=== PATIENT | male | born 1990 | race Caucasian/White ===

== ENCOUNTER → 2016-12-24 21:09 | Emergency (ER) | payer SELFPAY | END | disposition home or self-care (01) | LOC: OH 21:09 | DX: Z02.5 Encounter for examination for participation in sport (principal) ==

== ENCOUNTER 2017-09-02 08:09 | Emergency (ER) | payer BC ==
[2017-09-02 08:25] VITALS: BP 117/63
--- NOTE | 2017-09-02 09:26 | RAD ---
INDICATION: Left wrist injury. TECHNIQUE: 3 views of the left wrist were obtained. FINDINGS: The bones are in normal alignment. No fracture is seen. Joint spaces appear maintained. IMPRESSION: NO EVIDENCE FOR FRACTURE, IF THE PATIENT'S SYMPTOMS PERSIST RECOMMEND FOLLOW-UP IMAGING.
--- NOTE | 2017-09-15 13:11 | UC ---
[facility], scribed for Ruth Flores DO on 09/02/17 at 0846 . Hand/Wrist HPI - HPI Summary HPI Summary: This patient is a 26 year old male presenting to [facility] – [place] with a chief complaint of left hand injury since last night. Patient states he suffered a mechanical fall yesterday while playing soccer and caught his fall with his left hand. Patient complains of upper hand/wrist pain. There was no noticeable swelling. The pain is rated 0/10 in severity at rest. Symptoms and pain aggravated by movement and palpation. Symptoms alleviated by nothing. Patient denies bruising or swelling, elbow or forearm pain. - History Of Current Complaint Chief Complaint: UCUpperExtremity Stated Complaint: HAND INJURY Time Seen by Provider: 09/02/17 08:28 Hx Obtained From: Patient Onset/Duration: Sudden Onset, Lasting Days - 1, Still Present Severity Currently: Mild Pain Intensity: 0 Pain Scale Used: 0-10 Numeric Aggravating Factor(s): Movement Alleviating Factor(s): Nothing Associated Signs And Symptoms: Positive: Negative - bruising or swelling, elbow or forearm pain - Allergies/Home Medications Allergies/Adverse Reactions: Allergies Allergy/AdvReac Type Severity Reaction Status Date / Time No Known Allergies Allergy Verified 09/02/17 08:25 Home Medications: Home Medications NK [No Home Medications Reported] 09/02/17 [History Confirmed 09/02/17] PMH/Surg Hx/FS Hx/Imm Hx Previously Healthy: Yes Endocrine History: Other Other Endocrine History: NEGATIVE: diabetes Cardiovascular History: Other - NEGATIVE: Hypertension Other Cardiovascular History: NEGATIVE: Hypertension - Surgical History Surgical History: None Surgery Procedure, Year, and Place: none - Family History Known Family History: Negative: Hypertension, Diabetes - Social History Lives: Alone Alcohol Use: Rare Substance Use Type: None Smoking Status (MU): Never Smoked Tobacco - Immunization History Most Recent Influenza Vaccination: declined Review of Systems All Other Systems Reviewed And Are Negative: Yes Physical Exam Triage Information Reviewed: Yes Vital Signs: Initial Vital Signs Temp 100.3 F 09/02/17 08:21 Pulse 64 09/02/17 08:21 Resp 20 09/02/17 08:21 BP 117/63 09/02/17 08:21 Pulse Ox 98 09/02/17 08:21 Vital Signs Reviewed: Yes - Additional Comments Appearance: Well-Appearing, No Pain Distress, Well-Nourished Eyes: conjunctiva clear, no discharge ENT: Hearing grossly normal, no muffled/hoarse voice. Neck: Normal, Supple Respiratory/Lung Sounds: Lungs clear, Normal breath sounds, No respiratory distress, No accessory muscle use Cardiovascular: RRR, No murmur Abdomen: Nontender, Soft, no guarding, not distended Musculoskeletal: Tenderness in base of 2nd through 4th medicarpal Neurological: Alert, muscle tone normal Psychiatric:Normal, age appropriate behavior Skin: Normal, Warm, Dry, Normal color Diagnostics - Radiology XR Wrist Xray Interpretation: No Acute Changes - IMPRESSION: NO EVIDENCE FOR FRACTURE, IF THE PATIENT'S SYMPTOMS PERSIST RECOMMEND FOLLOW-UP IMAGING. physician has reviewed this radiology report. Radiology Interpretation Completed By: Radiologist Hand/Wrist Course/Dx - Course Course Of Treatment: This patient is a 26 year old male presenting to [facility] – [place], [place] with a chief complaint of left hand injury since last night. Patient states he suffered a mechanical fall yesterday while playing soccer and caught his fall with his left hand. Patient complains of upper hand/wrist pain. There was no noticeable swelling. The pain is rated 0/10 in severity at rest. Symptoms and pain aggravated by movement and palpation. Symptoms alleviated by nothing. Patient denies bruising or swelling, elbow or forearm pain. XR Wrist reveals, per radiologist, IMPRESSION: NO EVIDENCE FOR FRACTURE, IF THE PATIENT'S SYMPTOMS PERSIST RECOMMEND FOLLOW-UP IMAGING. physician has reviewed this radiology report. Patient will be discharged with a diagnosis of wrist sprain and suspected fracture and follow up from PCP. The patient is agreeable with this plan. Medications reviewed. Allergies reviewed. - Differential Dx/Diagnosis Provider Diagnoses: Wrist Sprain and Suspected Fracture Discharge - Discharge Plan Condition: Good Disposition: HOME Patient Education Materials: Splint Care (ED), Suspected Fracture (ED), Wrist Sprain (ED) Referrals: Deloris Magaña MD [Medical Doctor] - 7 Days No Primary Care Phys,NOPCP [Primary Care Provider] - Additional Instructions: Your history and exam is suspicous for possible occult fracture of the scaphoid bone. This is a fracture that can have a bad outcome if not properly immobilized. So, we will treat this as a fracture until proven otherwise. That means that you must wear the splint 24 hours a day until the ortho provider tells you otherwise. It will take 5-7 days to establish whether or not your bone is fractured. The documentation as recorded by the [facility] accurately reflects the service I personally performed and the decisions made by , Ruth Flores DO.
== END 2017-09-02 09:46 | disposition home or self-care (01) ==
LOC: UCEAST 08:09
DX: S63.502A Unspecified sprain of left wrist, initial encounter (principal); W18.30XA Fall on same level, unspecified, initial encounter; Y93.66 Activity, soccer; Y92.39 Other specified sports and athletic area as the place of occurrence of the external cause
CPT/HCPCS: 99211; G0463

== ENCOUNTER → 2018-02-27 07:10 | Emergency (ER) | payer SELFPAY | END | disposition home or self-care (01) | LOC: OHEAST 07:10 | DX: Z02.9 Encounter for administrative examinations, unspecified (principal) ==

== ENCOUNTER 2018-03-14 04:13 | Observation (INO) | payer BC ==
[2018-03-14] MEDS ORDERED: Morphine VIAL* 4 MG/ML VIAL (1 ml vial) IV ONE ×2 (05:15→09:12)
[2018-03-14] MEDS ORDERED: Ondansetron INJ* 2 MG/ML VIAL IV ONE (05:16)
[2018-03-14 05:57] LABS: ABS Basophils 0 10^3/ul (0-0.2); ABS Eosinophils 0 10^3/ul (0-0.6); ABS Lymphocytes 0.6 10^3/ul (1.0-4.8); ABS Monocytes 0.7 10^3/ul (0-0.8); ABS Neutrophils 10.6 10^3/ul (1.5-7.7); ABS Nucleated RBC 0 10^3/ul; Eosinophil % 0 % (0-6); Hematocrit 45 % (42-52); Hemoglobin 15.7 g/dl (14.0-18.0); Lymphocyte % 5.1 % (25-47); Mean Corpuscular HGB Conc 35 g/dl (31-36); Mean Corpuscular Hemoglobin 31 pg (27-31); Mean Corpuscular Volume 88 fL (80-94); Mean Platelet Volume 6.9 um3 (7.4-10.4); Nucleated Red Blood Cells % 0.2; Platelet Count 259 10^3/ul (150-450); Red Blood Count 5.14 10^6/ul (4.00-5.40); Red Cell Distribution Width 13 % (10.5-15); White Blood Count 11.9 10^3/ul (3.5-10.8)
[2018-03-14] MEDS ORDERED: Morphine INJ** 4 MG/ML 1 ML CARPUJECT IV ONE ×2 (06:01→09:21)
[2018-03-14] MEDS: Morphine INJ** 4 MG/ML 1 ML CARPUJECT IV ONE ×2 (06:10→09:32)
[2018-03-14 06:15] LABS: Urine Appearance Clear; Urine Blood Negative (Negative); Urine Color Yellow; Urine Ketones 1+ (Negative); Urine Protein Negative (Negative); Urine Specific Gravity 1.033 (1.010-1.030); Urine Urobilinogen Negative (Negative)
[2018-03-14 06:20] LABS: EGFR Non-African American 92.2 (>60)
[2018-03-14] MEDS ORDERED: Iohexol 300* (CONTRAST) 10 ML SDV IV ONE (07:09)
--- NOTE | 2018-03-14 07:45 | ED ---
Abdominal Pain/Male - HPI Summary HPI Summary: This is harsh [place] documenting for attending Dr. Erlin Arora MD. A 27 y/o male presents to the ED c/o lower abdominal pain. Additionally c/o vomiting. Currently, the patient experiencing abdominal pain reaching 9/10 in severity. According to the patient, the patient started earlier in the night when he experienced this "gas" feeling. Since, he has noticed a gradual painful increase in his abdominal pain. He noted that during the night when he went to go use the restroom, the pain became unbearable coupled with a episode of vomiting shortly after. Pt denies any blood/pain with urination, appetite changes or fever. He stated that he has never experienced pain like this before. Movement aggravates the symptoms. No other known medical issues. No major surgeries. No medication. SHx of non-smoker, occasional ETOH. - History of Current Complaint Chief Complaint: EDAbdPain Stated Complaint: ABD PAIN Time Seen by Provider: 03/14/18 05:10 Hx Obtained From: Patient Onset/Duration: Sudden Onset, Still Present, Worse Since - Since onset Timing: Constant Severity Initially: Severe Severity Currently: Severe Pain Intensity: 9 Pain Scale Used: 0-10 Numeric Radiates to: Other - Lower Aggravating Factor(s): Movement Alleviating Factor(s): Nothing Associated Signs And Symptoms: Positive: Vomiting. Negative: Fever, Urinary Symptoms, Decreased Appetite - Allergies/Home Medications Allergies/Adverse Reactions: Allergies Allergy/AdvReac Type Severity Reaction Status Date / Time No Known Allergies Allergy Verified 09/02/17 08:25 PMH/Surg Hx/FS Hx/Imm Hx Endocrine/Hematology History: Denies: Hx Diabetes Cardiovascular History: Denies: Hx Hypertension - Surgical History Surgery Procedure, Year, and Place: none Infectious Disease History: No Infectious Disease History: Denies: Traveled Outside the [place] in Last 30 Days - Family History Known Family History: Negative: Hypertension, Diabetes - Social History Alcohol Use: Rare Substance Use Type: Reports: None Smoking Status (MU): Never Smoked Tobacco Review of Systems Negative: Fever Positive: Abdominal Pain, Vomiting, Other - NEGATIVE: Appetite changes Negative: dysuria, pain All Other Systems Reviewed And Are Negative: Yes Physical Exam - Summary Physical Exam Summary: Appearance: Well-appearing, Well-nourished, lying in bed comfortably. Appears uncomfortable and in pain. Skin: Warm, dry, no obvious rash Eyes: sclera anicteric, no conjunctival pallor ENT: mucous membranes moist, pharynx appears normal Neck: Supple, nontender Respiratory: Clear to auscultation, no signs of respiratory distress Cardiovascular: Normal S1, S2. No murmurs. Normal distal pulses in tibial and radial bilaterally. Abdomen: Soft, diffuse abdominal tenderness with rebound in RLQ, normal active bowel sounds present Musculoskeletal: Normal, Strength/ROM Intact Neurological: A&Ox3, awake and alert, mentation is normal, speech is fluent and appropriate Psychiatric: affect is normal, does not appear anxious or depressed Triage Information Reviewed: Yes Vital Signs On Initial Exam: Initial Vitals Temp Pulse Resp BP Pulse Ox 97.9 F 78 20 140/69 100 03/14/18 04:23 03/14/18 04:23 03/14/18 04:23 03/14/18 04:23 03/14/18 04:23 Vital Signs Reviewed: Yes Diagnostics - Vital Signs Vital Signs Temp Pulse Resp BP Pulse Ox 03/14/18 07:01 98 98 03/14/18 07:00 97 136/79 97 03/14/18 06:25 98 125/69 95 03/14/18 06:10 16 03/14/18 06:00 95 98 03/14/18 05:55 102 124/71 98 03/14/18 05:27 92 126/72 99 03/14/18 05:00 86 100 03/14/18 04:55 94 143/79 99 03/14/18 04:23 97.9 F 78 20 140/69 100 - Laboratory Lab Results: Lab Results 03/14/18 03/14/18 03/14/18 Range/Units 05:40 05:40 05:55 WBC 11.9 H (3.5-10.8) 10^3/ul RBC 5.14 (4.00-5.40) 10^6/ul Hgb 15.7 (14.0-18.0) g/dl Hct 45 (42-52) % MCV 88 (80-94) fL MCH 31 (27-31) pg MCHC 35 (31-36) g/dl RDW 13 (10.5-15) % Plt Count 259 (150-450) 10^3/ul MPV 6.9 L (7.4-10.4) um3 Neut % (Auto) 89.1 H (38-83) % Lymph % (Auto) 5.1 L (25-47) % Colbert % (Auto) 5.5 (0-7) % Eos % (Auto) 0 (0-6) % Baso % (Auto) 0.3 (0-2) % Absolute Neuts (auto) 10.6 H (1.5-7.7) 10^3/ul Absolute Lymphs (auto) 0.6 L (1.0-4.8) 10^3/ul Absolute Monos (auto) 0.7 (0-0.8) 10^3/ul Absolute Eos (auto) 0 (0-0.6) 10^3/ul Absolute Basos (auto) 0 (0-0.2) 10^3/ul Absolute Nucleated RBC 0 10^3/ul Nucleated RBC % 0.2 Sodium 138 (135-145) mmol/L Potassium 4.3 (3.5-5.0) mmol/L Chloride 104 (101-111) mmol/L Carbon Dioxide 28 (22-32) mmol/L Anion Gap 6 (2-11) mmol/L BUN 21 (6-24) mg/dL Creatinine 0.97 (0.67-1.17) mg/dL Est GFR ( Amer) 111.5 (>60) Est GFR (Non-Af Amer) 92.2 (>60) BUN/Creatinine Ratio 21.6 H (8-20) Glucose 121 H (70-100) mg/dL Calcium 9.6 (8.6-10.3) mg/dL Total Bilirubin 1.70 H (0.2-1.0) mg/dL AST 21 (13-39) U/L ALT 33 (7-52) U/L Alkaline Phosphatase 89 (34-104) U/L C-Reactive Protein 23.02 H (<8.01) mg/L Total Protein 7.7 (6.4-8.9) g/dL Albumin 4.3 (3.2-5.2) g/dL Globulin 3.4 (2-4) g/dL Albumin/Globulin Ratio 1.3 (1-3) Lipase < 10 L (11.0-82.0) U/L Urine Color Yellow Urine Appearance Clear Urine pH 5.0 (5-9) Ur Specific [place] 1.033 H (1.010-1.030) Urine Protein Negative (Negative) Urine Ketones 1+ A (Negative) Urine Blood Negative (Negative) Urine Nitrate Negative (Negative) Urine Bilirubin Negative (Negative) Urine Urobilinogen Negative (Negative) Ur Leukocyte Esterase Negative (Negative) Urine Glucose 1+(50 mg/dl) A (Negative) Result Diagrams: 03/14/18 05:40 03/14/18 05:40 Lab Statement: Any lab studies that have been ordered have been reviewed, and results considered in the medical decision making process. Discharge - Sign-Out/Discharge Signing out patient TO: Kenneth Dahl Receiving patient FROM: Erlin Arora - Discharge Plan Referrals: No Primary Care Phys,NOPCP [Primary Care Provider] -
--- NOTE | 2018-03-14 08:00 | RAD ---
INDICATION: Abdominal pain, suspected acute appendicitis. COMPARISON: There are no prior studies available for comparison. TECHNIQUE: A CT scan of the abdomen and pelvis was performed with intravenous and with limited oral contrast following intravenous injection of 100 ml of Omnipaque 300 nonionic contrast. Contiguous axial sections were obtained from the lung bases through the symphysis pubis. Images were reconstructed in the coronal and sagittal planes. FINDINGS: The lung bases are clear. No pleural effusion is present. The liver and spleen are normal in size without significant focal abnormality. Note is made of a gallstone present. No gallbladder wall thickening or pericholecystic fluid is present. The pancreas appears to be within normal limits. The kidneys and adrenal glands are normal in size. No hydronephrosis is seen. No significant focal renal abnormality is seen. The aorta is normal in caliber and demonstrates homogeneous contrast opacification. No significant enlarged retroperitoneal lymph nodes are seen. The stomach, small and large bowel appear nondistended. Evaluation of the appendix is limited on this study secondary to limited oral contrast. There is nonopacification of the distal small bowel and ascending colon. There is a tubular structure which appears to arise from the base of the cecum with which is enlarged with thickened enhancing bullard. There also appears to be edema at the base of the cecum. These findings would be most consistent with acute appendicitis. There is mild to moderate sigmoid diverticulosis without evidence for diverticulitis. There is a small amount of free intraperitoneal fluid present in the dependent pelvis. No free intraperitoneal air is seen. No significant focal osseous abnormality is seen. IMPRESSION: 1. LIMITED STUDY. 2. FINDINGS MOST CONSISTENT WITH ACUTE APPENDICITIS. 3. CHOLELITHIASIS.
[2018-03-14] MEDS ORDERED: Piperacillin/Tazobac ADVAN(*) 3.375 GM in NS 0.9% 100 ML* 100 ML IVPB ONE (08:07)
[2018-03-14] MEDS ORDERED: NS 0.9% 1000 ML* 1,000 ML IV ONE (08:15)
--- NOTE | 2018-03-14 09:14 | ED ---
Progress - Progress Note Progress Note: This is harsh [place] documenting for attending Kenneth Dahl M.D. Dr. Arora signed out Pt to Dr. Dahl. CT abd/pel impression: Limited study; findings most consistent with acute appendicitis. Cholelithiasis. This report was reviewed by ED. 0759: Dr. Dahl reviewed condition of patient and discussed tests and results. As CT abd/pel raised concerns of appendicitis, Dr. Coelho was consulted 0821. Dr. Coelho reviewed the patient. He accepts Pt for admission to surgery. Re-Evaluation - Re-Evaluation First Eval Re-Evaluation Time: 07:59 Comment: Pt was reviewed by Dr. Dahl and tests and results were discussed. Course/Dx - Course Course Of Treatment: Pt is a 27 y/o M signed out from Dr. Arora to Dr. Dahl. CT abd/pel showed acute appendicitis. At 0759, Dr. Dahl reviewed condition of patient and discussed tests and results. Due to CT abd/pel findings, Dr. Coelho was consulted 0821. Dr. Coelho came to room and reviewed the patient. He accepts Pt for admission to [facility] [place] for [place]. Pt was diagnosed with acute appendicitis. - Diagnoses Provider Diagnoses: Acute appendicitis - Provider Notifications Discussed Care Of Patient With: Carlton Coelho Time Discussed With Above Provider: 08:21 Instructed by Provider To: Other - Pt discussed with Dr. Coelho. After reviewing patient in room, Dr. Coelho accepts Pt for [facility] [place] admission for surgery Discharge - Sign-Out/Discharge Documenting (check all that apply): Patient Departure - admit - Discharge Plan Condition: Stable Disposition: ADMITTED TO [facility] - Billing Disposition and Condition Condition: STABLE Disposition: Admitted to [facility]
[2018-03-14] MEDS ORDERED: Acetaminophen TAB* 325 MG PO ONE (09:48)
--- NOTE | 2018-03-14 10:04 | HP ---
DATE OF ADMISSION: 03/14/2018. CHIEF COMPLAINT: Abdominal pain. HISTORY OF PRESENT ILLNESS: Mr. Renae is a 27-year-old, generally in a good state of health who sta rted to have abdominal pain yesterday. It increased through the day and got to be pretty miserable o vernight. He has no antecedent illness or injury. No chronic medical problems. No fever, chills, n ausea, vomiting, diarrhea. No recent accident, injury, or trauma. He does note that he had a simila r pain a couple of months ago that disappeared after a few hours, but does not know if it is the same . PAST MEDICAL HISTORY: Benign. No chronic medical illnesses. PAST SURGICAL HISTORY: No previous surgeries. MEDICATIONS: No regular medications. ALLERGIES: No medical allergies. FAMILY HISTORY: Benign. No bleeding tendencies or anesthesia reactions. SOCIAL HISTORY: He is here with his girlfriend. 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 He denies smoking. REVIEW OF SYSTEMS: Multisystem review is benign. No chest pain, heart pain, angina pain, or cardiac disease. No emphysema, bronchitis, or other pulmonary disease. No hepatitis, jaundice, or other hep atobiliary disease. No kidney stones, urinary infections, or other urinary disease. No previous gas trointestinal disease. No neuromuscular psych issues. PHYSICAL EXAMINATION GENERAL: He is a well-developed, well-nourished, slender male. He appears uncomfortable. Color is good. VITAL SIGNS: Temperature 97.9, pulse 94 and regular, respirations 18 unlabored, O2 saturation 97 per cent, blood pressure 126/66. He is 6 feet tall, 175 pounds with a BMI of 24. NECK: Supple without any adenopathy. LUNGS: Clear bilaterally. HEART: Regular without any abnormal sounds. ABDOMEN: Soft, flat, exquisitely tender in the right lower quadrant with referred rebound tenderness , percussion sign, Rovsing sign. No palpable masses or hernias. EXTREMITIES: Well-perfused and without edema. LABORATORY DATA: White blood count elevated at 12,000 with a left shift. The electrolytes are esse ntially normal. C-reactive protein is elevated at 23. Urinalysis is benign. CT scan of the abdomen is consistent with acute appendicitis. IMPRESSION: Healthy, 27-year-old male with evidence of acute appendicitis. PLAN: I discussed this with him and with his girlfriend. They understand the rationale for elective appendectomy, the risks and expected recovery from the surgery. We have gone over all of these issu es. All their questions have been answered and they would like to proceed with laparoscopic appendec rip. We will do so as soon as the operative schedule permits. [id number]/[facility] #: [id number]
[2018-03-14] MEDS ORDERED: fentaNYL* 50 MCG/ML 2 ML VIAL (100 MCG VIAL) ONE ×2 (13:09→14:28)
[2018-03-14] MEDS ORDERED: Midazolam* 1 MG/ML 2 ML VIAL (2 MG) ONE (13:09)
[2018-03-14] MEDS ORDERED: Bupivacaine 0.25% W/EPI* 10 ML SDV ONE ×2 (13:19)
[2018-03-14] MEDS ORDERED: ZOSYN 3.375 GM x ONE DOSE over 30 miuntes IVPB ×2 (13:30)
[2018-03-14] MEDS ORDERED: Propofol* 10 MG/ML 20 ML BTL IV PUSH ONE ×2 (13:58→14:16)
[2018-03-14] MEDS ORDERED: Ondansetron INJ* 2 MG/ML VIAL ONE ×2 (13:58→15:42)
[2018-03-14] MEDS ORDERED: Dexamethasone IV* 4 MG/ML 1 ML (4 MG) ONE (13:58)
[2018-03-14] MEDS ORDERED: Lidocaine 2% PF * 5 ML VIAL ONE (13:59)
[2018-03-14] MEDS ORDERED: Rocuronium* 10 MG/ML VIAL ONE (14:15)
[2018-03-14] MEDS ORDERED: Naloxone* 0.4 MG/ML 1 ML VIAL IV PRN (14:41)
[2018-03-14] MEDS ORDERED: PROCHLORPERAZINE INJ 5 MG/ML 2 ML VIAL IV PRN (14:41)
[2018-03-14] MEDS ORDERED: Acetaminophen TAB* 325 MG PO PRN ×2 (14:41→15:16)
[2018-03-14] MEDS ORDERED: fentaNYL* 50 MCG/ML 2 ML VIAL (100 MCG VIAL) IV PRN (14:41)
[2018-03-14] MEDS ORDERED: Ketorolac INJ* 30 MG/ML 1 ML VIAL ONE (14:43)
[2018-03-14] MEDS ORDERED: HYDROmorphone INJ* 2 MG/ML CARPUJECT SYRINGE IV PRN (15:16)
[2018-03-14] MEDS ORDERED: Ondansetron INJ* 2 MG/ML VIAL IV PRN (15:16)
[2018-03-14] MEDS ORDERED: HYDROmorphone INJ* 0.5 MG/0.5 ML SYRINGE ONE (15:42)
[2018-03-14] MEDS: HYDROmorphone INJ* 0.5 MG/0.5 ML SYRINGE IV PRN ×2 (15:45→16:12)
[2018-03-14] MEDS: NS 0.9% 1000 ML* 1,000 ML IV SCH (17:31)
[2018-03-14] MEDS: Piperacillin/Tazobactam VIAL*) 3.375 GM in NS 0.9% 100 ML* 100 ML IVPB SCH (17:34)
[2018-03-14] MEDS ORDERED: HYDROmorphone INJ* 0.5 MG/0.5 ML SYRINGE IV PRN (18:00)
[2018-03-14] MEDS: oxyCODONE/Acetamin 5/325 MG* TAB PO PRN ×2 (18:43→23:04)
[2018-03-14] MEDS: Ibuprofen TAB* 600 MG PO SCH (21:45)
[2018-03-15] MEDS: NS 0.9% 1000 ML* 1,000 ML IV SCH (01:47)
[2018-03-15] MEDS: Piperacillin/Tazobactam VIAL*) 3.375 GM in NS 0.9% 100 ML* 100 ML IVPB SCH (01:47)
[2018-03-15 05:34] LABS: ABS Basophils 0 10^3/ul (0-0.2); ABS Eosinophils 0 10^3/ul (0-0.6); ABS Lymphocytes 0.7 10^3/ul (1.0-4.8); ABS Monocytes 0.5 10^3/ul (0-0.8); ABS Nucleated RBC 0 10^3/ul; Eosinophil % 0.1 % (0-6); Hematocrit 37 % (42-52); Hemoglobin 12.5 g/dl (14.0-18.0); Lymphocyte % 6.4 % (25-47); Mean Corpuscular HGB Conc 34 g/dl (31-36); Mean Corpuscular Hemoglobin 30 pg (27-31); Mean Corpuscular Volume 89 fL (80-94); Mean Platelet Volume 7.2 um3 (7.4-10.4); Nucleated Red Blood Cells % 0; Platelet Count 196 10^3/ul (150-450); Red Blood Count 4.12 10^6/ul (4.00-5.40); Red Cell Distribution Width 13 % (10.5-15); White Blood Count 10.2 10^3/ul (3.5-10.8)
--- NOTE | 2018-03-15 05:34 | OP ---
CC: Carlton Coelho MD OPERATIVE REPORT: DATE OF OPERATION: 03/14/18. DATE OF : 88. SURGEON: Carlton Coelho M.D. PRE-OP DIAGNOSIS: Acute appendicitis. POST-OP DIAGNOSIS: Acute appendicitis. OPERATIVE PROCEDURE: Laparoscopic appendectomy. OPERATIVE FINDINGS: Acute perforated appendicitis. DESCRIPTION OF PROCEDURE: The patient was supine in the operating room table. After adequate general anesthetic, compression stockings, Doron Hugger warmer, and intravenous antibiotics, the abdomen was clipped and prepped with antiseptic, and draped in a sterile fashion. Local infiltrative anesthesia was administered. A small umbilical incision was created. Blunt port cannula was placed. Insufflat ion was carried out with carbon-dioxide. The fluid was noted down the pelvis. This was suctioned ou t. The appendix was densely adherent down into the pelvis to the right of midline and this was radha d off the pelvis. The appendix fractured and the distal 2 cm was removed separately. The appendix w as quite thickened and edematous and the mesoappendix was divided using a contreras load of the EndoGIA an d then the base of the appendix was still very thickened; however, onto the cecum was divided using a black load of the EndoGIA stapler. The appendix was placed in a retrieval bag and brought out throu gh the umbilical site. A MORGAN drain was brought in through the umbilical site, now through the left lo wer quadrant incision. This was placed down into the pelvis. Irrigation was carried out. Free flui d was suctioned out. Everything appeared to be in good condition. Staple line was in good condition . The cannulae were removed. Pneumoperitoneum allowed to escape, umbilical fascia was closed with 0 -Vicryl and the skin with 5-0 Vicryl followed by Steri-Strips. The drain was sutured in place using 3-0 Prolene and covered by gauze dressing. He was awakened and brought to the recovery in good condi tion. No complications. Drain is Siddharth Langford. Sponge and instrument counts correct. Estimated bl ood loss less than 30 mL and specimen is appendix. [id number]/[facility] #: [id number]
[2018-03-15 05:49] LABS: EGFR Non-African American 111.9 (>60)
[2018-03-15] MEDS: Ibuprofen TAB* 600 MG PO SCH (06:03)
[2018-03-15 07:26] VITALS: BP 100/52
[2018-03-15] MEDS: oxyCODONE/Acetamin 5/325 MG* TAB PO PRN (07:48)
--- NOTE | 2018-03-15 13:52 | DS ---
DISCHARGE SUMMARY: DATE OF ADMISSION: 03/14/18 DATE OF DISCHARGE: 03/15/18 PRINCIPAL ADMITTING DIAGNOSIS: Appendicitis. OPERATIVE PROCEDURE: Laparoscopic appendectomy. HOSPITAL COURSE: The patient is a 27-year-old male, came to the hospital the morning of 03/14/18, was taken to the operating room for laparoscopic appendectomy, found to have a probable perforated appendicitis. He had laparoscopic appendectomy. He had a drain left in place, was maintained on antibiotics. The following day, he was feeling much better. The Siddharth-Langford drain was removed and he will be discharged home on antibiotics for another week at home. He was discharged with instruction sheet and will follow up in the office next week. [id number]/[facility] #: [id number] [facility]IP[facility]
== END 2018-03-15 09:15 | disposition home or self-care (01) ==
LOC: ED 04:13 → OR 09:00 → SSU 15:16
PROVIDERS: ADMIT Surgery; ATTEND Surgery
PROC: 0DTJ4ZZ Resection of Appendix, Percutaneous Endoscopic Approach (ICD-10-PCS; principal; 2018-03-14 13:30)
DX: K35.80 Unspecified acute appendicitis (principal); R11.10 Vomiting, unspecified; K80.20 Calculus of gallbladder without cholecystitis without obstruction
CPT/HCPCS: 36415; 74177; 80048; 80053; 81003; 83690; 85025; 86140; 88304; 96374; 96375; 99284; A9270-GY; C1776; G0378; J1100; J1170; J1885; J2250; J2270; J2405; J2543; J2704; J3010; Q9967